=== PATIENT | male | born 1975 | race Caucasian/White ===

== ENCOUNTER 2021-02-07 09:49 | Emergency (ER) | payer MEDICARE, MEDICAID, SELFPAY ==
[2021-02-07 10:02] VITALS: BP 103/66; PULSE 81; RESP 18; TEMP 36.9; O2SAT 97; BMI 28.5
[2021-02-07 11:09] VITALS: BP 95/55; PULSE 71
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
--- NOTE | 2021-02-07 13:07 | PC.NURSE ---
AWAITING SILVADENE CREAM FROM PHARMACY, SPOKE WITH DORINDA
--- NOTE | 2021-02-07 13:08 | PC.NURSE ---
PT NOT ELIGIBLE FOR TETANUS VACCINE TODAY R/T HAVING RECEIVED HIS COVID VACCINE 5 DAYS AGO PER [facility], ORLY KWON AND PT UPDATED, TDAP SYRINGE WASTED AT PHARMACIST'S INSTRUCTIONS
[2021-02-07] MEDS: Silver Sulfadiazine 1 % Cream 20 GM TUBE 1 APPL TOPICAL (13:30)
== END 2021-02-07 13:49 | disposition home or self-care (01) ==
PROVIDERS: Emergency Provider Emergency Medicine
DX: T22.212A Burn of second degree of left forearm, initial encounter (principal); T31.0 Burns involving less than 10% of body surface; X08.8XXA Exposure to other specified smoke, fire and flames, initial encounter; Y93.89 Activity, other specified; Y92.015 Private garage of single-family (private) house as the place of occurrence of the external cause; Y99.9 Unspecified external cause status
CPT/HCPCS: 90471; 99283; 99284

== ENCOUNTER 2021-03-10 01:11 | Emergency (ER) | payer MEDICARE, MEDICAID, SELFPAY ==
[2021-03-10 01:13] VITALS: BP 107/76; PULSE 62; RESP 16; TEMP 36.8; O2SAT 98; BMI 27.6
[2021-03-10 04:00] VITALS: BP 107/76; PULSE 62; RESP 16; TEMP 36.8; O2SAT 98
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
[2021-03-10] MEDS: 0.9 % Sodium Chloride 1,000 ML 999 ML IVCONT (05:21)
[2021-03-10] MEDS: Diphth,Pertus(ACell),Tet Adult 0.5 ML SYRINGE IM (05:21)
[2021-03-10 05:23] VITALS: RESP 15
[2021-03-10] MEDS: Morphine Sulfate 4 MG/ML CARTRIDGE IVPUSH (05:23)
[2021-03-10] MEDS: Piperacillin Sodium/Tazobactam 3.375 GM in 0.9 % Sodium Chloride 50 ML IV (05:24)
[2021-03-10 06:00] VITALS: BP 110/75; PULSE 67; RESP 15; O2SAT 98
[2021-03-10 06:24] LABS: MANUAL DIFF FLAG NO
[2021-03-10 06:25] LABS: Basophils Percent Auto 0.5 % (0-2); Eosinophils Absolute Auto 0.1 X10*3/uL (0.0-0.4); Eosinophils Percent Auto 2.4 % (0-4); Hematocrit 30.4 % (42-52); Imm Gran Abs Auto 0.01 X10*3/uL (0.00-0.03); Imm Gran Pct Auto 0.2 % (0.0-0.4); Lymphocytes Absolute Auto 1.7 X10*3/uL (1.2-4.9); Lymphocytes Percent Auto 40.1 % (20-40); Mean Corpuscular HGB Conc 32.9 g/dl (31.0-36.0); Mean Corpuscular Volume 103.4 fL (80-98); Mean Platelet Volume 9.1 fL (9.4-12.4); Monocytes Absolute Auto 0.5 X10*3/uL (0.1-1.2); Monocytes Percent Auto 11.1 % (2-11); Neutrophils Absolute Auto 1.9 X10*3/uL (2.0-8.3); Neutrophils Percent Auto 45.7 % (45-73); Platelet Count 304 X10*3/uL (160-400); Red Blood Count 2.94 X10*6/uL (4.60-5.80); Red Cell Distribution Width 13.3 % (11.0-16.0); White Blood Count 4.2 X10*3/uL (4.8-10.8)
[2021-03-10 06:41] LABS: Lactic Acid 0.7 mmol/L (0.5-2.0)
[2021-03-10 06:44] LABS: Anion Gap 11 (12-20); Blood Urea Nitrogen 10 mg/dL (9-16); Calcium 8.4 mg/dL (8.4-10.2); Carbon Dioxide 25 mmol/L (22-29); Chloride 109 mmol/L (96-108); Estimated Glomerular Filt Rate > 60; Glucose Random 87 mg/dL (60-115); Potassium 3.8 mmol/L (3.3-5.1); Sodium 141 mmol/L (135-145)
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
[2021-03-10 08:22] LABS: COVID-19 Test Negative (Negative)
== END 2021-03-10 09:08 | disposition home or self-care (01) ==
PROVIDERS: Emergency Provider Emergency Medicine
DX: T22.30XA Burn of third degree of shoulder and upper limb, except wrist and hand, unspecified site, initial encounter (principal); T31.0 Burns involving less than 10% of body surface; M79.601 Pain in right arm; Y27.9XXA Contact with unspecified hot objects, undetermined intent, initial encounter; Y93.9 Activity, unspecified; Y92.9 Unspecified place or not applicable; Y99.9 Unspecified external cause status; Z20.822 Contact with and (suspected) exposure to COVID-19; Z79.899 Other long term (current) drug therapy
CPT/HCPCS: 36415; 80048; 83605; 85025; 87040; 87635; 90471; 90715; 96361; 96365; 96375; 99284; J2270; J2543

== ENCOUNTER 2021-03-13 08:14 | Outpatient (RCR) | payer MEDICARE, MEDICAID, SELFPAY | END 2021-05-16 11:48 | disposition home or self-care (01) | LOC: HO.WCC 08:14 | PROVIDERS: Visit Provider Physician Assistant | DX: T22.212D Burn of second degree of left forearm, subsequent encounter (principal) | CPT/HCPCS: 11042; 11045; 16020; 16025; 97597; 97598; 99212 ==

== ENCOUNTER 2021-03-20 08:52 | Outpatient (REF) | payer MEDICARE, MEDICAID, SELFPAY | END 2021-03-20 08:53 | disposition home or self-care (01) | LOC: HO.LAB 08:52 | PROVIDERS: Visit Provider Internal Medicine | DX: Z20.822 Contact with and (suspected) exposure to COVID-19 (principal) | CPT/HCPCS: C9803; U0003; U0005 ==